=== PATIENT | female | born 1970 | race Two or more races ===

== ENCOUNTER 2020-12-07 07:41 | Day surgery (SDC) | payer OTHER ==
[~2020-12-07 07:41] MED LIST: HYOSCYAMINE0.125 M1 SL; INTESTINEX680 M1 PO; IRON SL; IRON236 MG PO; ULTRACET PO
== END 2020-12-07 12:30 | disposition home or self-care (01) ==
LOC: AMB-ENDOS 07:41
PROVIDERS: ATTEND Surgery
DX: K62.89 Other specified diseases of anus and rectum (principal); Z20.822 Contact with and (suspected) exposure to COVID-19